=== PATIENT | female | born 1945 | race Native Hawaiian/Other Pacific Islander ===

== ENCOUNTER 2017-04-17 09:14 | Outpatient (CLI) | payer OTHER | END 2017-04-17 10:15 | disposition home or self-care (01) | LOC: MAMMO 09:14 | DX: Z12.31 Encounter for screening mammogram for malignant neoplasm of breast (principal) | CPT/HCPCS: G0202-TC ==

== ENCOUNTER 2019-02-09 14:43 | Outpatient (CLI) | payer OTHER | END 2019-02-09 19:22 | disposition home or self-care (01) | LOC: RAD 14:43 | DX: M25.552 Pain in left hip (principal) ==

== ENCOUNTER 2019-09-28 12:24 | Outpatient (CLI) | payer OTHER ==
[2019-09-28 12:59] LABS: PLATELET COUNT 328 K/uL (152-353)
== END 2019-09-28 22:35 | disposition home or self-care (01) ==
LOC: LABW 12:24
PROVIDERS: Internal Medicine
DX: N18.3 Chronic kidney disease, stage 3 (moderate) (principal)
CPT/HCPCS: 36415; 80053; 81000; 82330; 82570; 83735; 83970; 84100; 84155; 85027

== ENCOUNTER 2020-08-06 12:44 | Emergency (ER) | payer OTHER ==
[~2020-08-06] VITALS: Ht 160 cm; Wt 50.8 kg
[2020-08-06 12:58] VITALS: TEMP 97.8
[2020-08-06] MEDS ORDERED: MOBIC7.5 M1 PO (13:21)
[2020-08-06] MEDS ORDERED: METOPROLOL25 M1 (13:21)
[2020-08-06] MEDS ORDERED: FURO20TA67 PO (13:21)
[2020-08-06 13:50] LABS: PLATELET COUNT 252 K/uL (152-353)
[2020-08-06 14:02] LABS: POTASSIUM 4.6 mmol/L (3.6-5.2)
[2020-08-06 14:10] LABS: PARTIAL THROMBOPLASTIN TIME 22.3 SECONDS (24.5-33.6)
[2020-08-06 15:00] VITALS: BP 121/68
== END 2020-08-06 15:44 | disposition home or self-care (01) ==
LOC: ED 12:44
PROVIDERS: Hospitalist
PROC: 0HDDXZZ Extraction of Right Lower Arm Skin, External Approach (ICD-10-PCS; principal; 2020-08-06)
DX: S22.41XA Multiple fractures of ribs, right side, initial encounter for closed fracture (principal); S50.311A Abrasion of right elbow, initial encounter; S20.311A Abrasion of right front wall of thorax, initial encounter; K44.9 Diaphragmatic hernia without obstruction or gangrene; W17.89XA Other fall from one level to another, initial encounter; Y92.89 Other specified places as the place of occurrence of the external cause
CPT/HCPCS: 36415; 80048; 85027; 85610; 85730; 96360; 96361; 96365; 96374; 99284; J0690; J1885

== ENCOUNTER 2020-08-25 12:47 | Outpatient (CLI) | payer OTHER ==
[~2020-08-25 12:47] MED LIST: FURO20TA67 PO; METOPROLOL25 M1; MOBIC7.5 M1 PO
[2020-08-25 13:25] LABS: PLATELET COUNT 367 K/uL (152-353)
[2020-08-25 13:34] LABS: POTASSIUM 4.1 mmol/L (3.6-5.2)
== END 2020-08-25 19:05 | disposition home or self-care (01) ==
LOC: LABW 12:47
PROVIDERS: ATTEND Nurse Practitioner
DX: N18.30 Chronic kidney disease, stage 3 unspecified (principal)
CPT/HCPCS: 36415; 80053; 81000; 82330; 82570; 83735; 83970; 84100; 84155; 85027

== ENCOUNTER 2020-12-26 13:19 | Outpatient (CLI) | payer OTHER ==
[2020-12-26 13:55] LABS: PLATELET COUNT 352 K/uL (152-353)
[2020-12-26 14:08] LABS: POTASSIUM 4.3 mmol/L (3.6-5.2)
== END 2020-12-26 19:26 | disposition home or self-care (01) ==
LOC: LABW 13:19
PROVIDERS: ATTEND Internal Medicine
DX: N18.32 Chronic kidney disease, stage 3b (principal)
CPT/HCPCS: 80053; 81000; 82330; 82570; 83735; 83970; 84100; 84155; 85027

== ENCOUNTER 2021-06-14 09:49 | Outpatient (CLI) | payer OTHER ==
[2021-06-14 11:04] LABS: PLATELET COUNT 357 K/uL (152-353)
[2021-06-14 11:11] LABS: POTASSIUM 4.3 mmol/L (3.6-5.2)
== END 2021-06-14 20:10 | disposition home or self-care (01) ==
LOC: LABW 09:49
PROVIDERS: ATTEND Nurse Practitioner
DX: N18.32 Chronic kidney disease, stage 3b (principal)
CPT/HCPCS: 36415; 80053; 81000; 82330; 82570; 83735; 83970; 84100; 84155; 85027

== ENCOUNTER 2021-09-20 10:21 | Outpatient (CLI) | payer OTHER ==
[2021-09-20 10:53] LABS: PLATELET COUNT 301 K/uL (152-353)
== END 2021-09-20 21:23 | disposition home or self-care (01) ==
LOC: LABW 10:21
PROVIDERS: ATTEND Internal Medicine
DX: N18.32 Chronic kidney disease, stage 3b (principal)
CPT/HCPCS: 36415; 81000; 82330; 83735; 83970; 84100; 85027

== ENCOUNTER 2022-01-16 09:59 | Outpatient (CLI) | payer OTHER ==
[2022-01-16 10:29] LABS: PLATELET COUNT 310 K/uL (152-353)
[2022-01-16 10:35] LABS: POTASSIUM 4.7 mmol/L (3.6-5.2)
== END 2022-01-16 19:42 | disposition home or self-care (01) ==
LOC: LABW 09:59
PROVIDERS: ATTEND Internal Medicine
DX: N18.32 Chronic kidney disease, stage 3b (principal); R82.998 Other abnormal findings in urine
CPT/HCPCS: 36415; 80053; 81000; 82330; 82570; 83735; 83970; 84100; 84156; 85027; 87077; 87086; 87088; 87186

== ENCOUNTER 2022-06-19 09:36 | Outpatient (CLI) | payer OTHER ==
[2022-06-19 10:07] LABS: PLATELET COUNT 325 K/uL (152-353)
== END 2022-06-19 21:00 | disposition home or self-care (01) ==
LOC: LABW 09:36
PROVIDERS: ATTEND Internal Medicine
DX: N18.32 Chronic kidney disease, stage 3b (principal)
CPT/HCPCS: 36415; 80053; 81002; 82330; 82570; 83735; 83970; 84100; 84156; 85027

== ENCOUNTER 2022-10-18 09:42 | Outpatient (CLI) | payer OTHER ==
[2022-10-18 10:04] LABS: PLATELET COUNT 362 K/uL (152-353)
[2022-10-18 10:17] LABS: POTASSIUM 4.5 mmol/L (3.6-5.2)
== END 2022-10-18 19:41 | disposition home or self-care (01) ==
LOC: LABW 09:42
PROVIDERS: ATTEND Internal Medicine
DX: N18.32 Chronic kidney disease, stage 3b (principal)
CPT/HCPCS: 36415; 80053; 81002; 82330; 82570; 83735; 83970; 84100; 84156; 85027

== ENCOUNTER 2023-02-25 14:09 | Outpatient (CLI) | payer OTHER ==
[2023-02-25 14:46] LABS: PLATELET COUNT 283 K/uL (152-353)
[2023-02-25 15:08] LABS: POTASSIUM 4.2 mmol/L (3.6-5.2)
== END 2023-02-25 19:26 | disposition home or self-care (01) ==
LOC: LABW 14:09
PROVIDERS: ATTEND Internal Medicine
DX: N18.32 Chronic kidney disease, stage 3b (principal)
CPT/HCPCS: 36415; 80053; 81002; 82330; 82570; 83735; 83970; 84100; 84156; 85027